=== PATIENT | female | born 1980 | race Caucasian/White ===

== ENCOUNTER 2017-02-22 10:33 | Emergency (ER) | payer MEDICARE, MEDICAID ==
[2017-02-22] MEDS ORDERED: oxyCODONE/Acetamin 5/325 MG* TAB PO ONE (11:42)
[2017-02-22 12:18] VITALS: BP 94/60
--- NOTE | 2017-02-22 18:45 | ED ---
I, Oh,Sogris, scribed for Ted Barnes MD on 02/22/17 at 1134 . Complex/Multi-Sys Presentation - HPI Summary HPI Summary: This 36 y/o female presents to ED for fever, MAYER, fatigue, and "feeling sleepy" since 4-5 days ago. Temperature of 102 F reported at time of onset. Temperature of 97 F is noted at time of triage. Pt reports bee sting by "four different bees " 10 days ago. Pt reports that she is still feeling itchy, and expresses concern that she may be having allergic reaction even after 10 days. She denies any known tick bite. Positive stiff neck. Negative photophobia, n/v, or PMHx includes laminectomy, and unspecified "nerve problem". Primary care involves Dr. Denney. Plan of care involving empirical treatment for Lyme disease and Lyme titer is discussed with pt. - History Of Current Complaint Chief Complaint: EDGeneral Time Seen by Provider: 02/22/17 11:20 Hx Obtained From: Patient, Medical Records Onset/Duration: Still Present Timing: Constant Associated Signs And Symptoms: Positive: Fever. Negative: Chest Pain - Allergies/Home Medications Allergies/Adverse Reactions: Allergies Allergy/AdvReac Type Severity Reaction Status Date / Time NSAIDs Allergy GI Upset Verified 02/21/16 14:49 BLUEBERRIES Allergy ITCHY Uncoded 02/21/16 14:49 THROAT, SOB GRAPES Allergy ITCHY Uncoded 02/21/16 14:49 THROAT, SOB PMH/Surg Hx/FS Hx/Imm Hx Endocrine/Hematology History: Denies: Hx Diabetes Cardiovascular History: Denies: Hx Hypertension, Hx Pacemaker/ICD History: Denies: Hx Renal Disease Sensory History: Denies: Hx Hearing Aid Psychiatric History: Denies: Hx Panic Disorder - Cancer History Cancer Type, Location and Year: 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 [facility] [facility] - Xs 2 - MMT REPAIR. MELONOMA REMOVED - [facility]. GASTRIC BYPASS - 2012 Infectious Disease History: No Infectious Disease History: Denies: Traveled Outside the [place] in Last 30 Days - Family History Known Family History: Negative: Cardiac Disease - Social History Alcohol Use: None Hx Substance Use: No Substance Use Type: Reports: None Smoking Status (MU): Unknown if Ever Smoked Review of Systems Positive: Fever, Fatigue, Other - "feeling sleepy" Negative: Photophobia Negative: Sore Throat, Nasal Discharge Negative: Vomiting, Nausea Positive: Other - stiff neck Positive: Rash - at left upper arm, bee sting site Positive: Headache All Other Systems Reviewed And Are Negative: Yes Physical Exam - Summary Physical Exam Summary: The patient is well-nourished in no acute distress and in no acute pain. The skin is warm and dry and skin color reflects adequate perfusion. Small [place] erythema noted at LUE upper arm, anterior. 3 cm x8 cm. No clearing center. No blanching. No evidence of wasp bite. HEENT: The head is normocephalic and atraumatic. The pupils are equal and reactive. The conjunctivae are clear and without drainage. Nares are patent and without drainage. Mouth reveals moist mucous membranes and the throat is without erythema and exudate. The external ears are intact. The ear canals are patent and without drainage. The tympanic membranes are intact. Neck is supple with full range of motion and tenderness at left sided neck pain. Pain with flexion and extension. No nuchal rigidity. There are no carotid bruits. There is no neck vein distension. Respiratory: Chest is non-tender. Lungs are clear to auscultation and breath sounds are symmetrical and equal. Cardiovascular: Hear is regular rate and rhythm. There is no murmur or rub auscultated. There is no peripheral edema and pulses are symmetrical and equal. Abdomen: The abdomen is soft and non-tender. There are normal bowel sounds heard in all four quadrants and there is no organomegaly palpated. Musculoskeletal: There is no back pain noted. Extremities are non-tender with full range of motion. There is good capillary refill. There is no peripheral edema or calf tenderness elicited. Neurological: Patient is alert and oriented to person, place and time. The patient has symmetrical motor strength in all four extremities. Cranial nerves are grossly intact. Deep tendon reflexes are symmetrical and equal in all four extremities. Psychiatric: The patient has an appropriate affect and does not exhibit any anxiety or depression. Triage Information Reviewed: Yes Vital Signs On Initial Exam: Initial Vitals Temp Pulse Resp BP Pulse Ox 97 F 92 17 116/75 100 02/22/17 10:38 02/22/17 10:38 02/22/17 10:38 02/22/17 10:38 02/22/17 10:38 Vital Signs Reviewed: Yes - [place] Coma Scale Coma Scale Total: 15 Diagnostics - Vital Signs Vital Signs Temp Pulse Resp BP Pulse Ox 02/22/17 10:38 97 F 92 17 116/75 100 - Laboratory Lab Statement: Any lab studies that have been ordered have been reviewed, and results considered in the medical decision making process. Complex Multi-Symp Course/Dx Assessment/Plan: This 36 y/o female presents to ED for fever, fatigue, neck stiffness, "more sleepy" since 4-5 days ago. Pt denies any known tick bite, but states that "I found one crawling on my arm". Pt also states that she may be having allergic reaction to a bee sting that occurred 10 days ago. Upon examination pt is noted with NO real nuchal rigidity, although pt reports pain with extension and flexion of neck. Left sided neck tenderness. Small 3 cm x 8 cm erythematous region is noted at anterior surface of left proximal humerous. Pt is empirically treated with doxycycline for Lyme disease and Lyme titer is done. Pt is discharged. - Diagnoses Provider Diagnoses: Lyme disease, Erythema migrans (Lyme disease) Discharge - Discharge Plan Condition: Stable Disposition: HOME Prescriptions: DOXYcycline CAP(*) [DOXYcycline 100MG CAP(*)] 100 mg PO BID #28 cap oxyCODONE/Acetamin 5/325 MG* [Percocet 5/325 TAB*] 1 tab PO Q6H PRN #20 tab MDD 4 PRN Reason: pain Patient Education Materials: Doxycycline (By mouth), Oxycodone/Acetaminophen ( By mouth), Lyme Disease (ED) Referrals: Non Staff,Doctor [Primary Care Provider] - 2 Days Additional Instructions: Please be sure to follow up with your primary care provider, Dr. Denney. The documentation as recorded by the Barry ortiz Soohyun accurately reflects the service I personally performed and the decisions made by me, Ted Barnes MD.
== END 2017-02-22 12:18 | disposition home or self-care (01) ==
LOC: ED 10:33
DX: A69.20 Lyme disease, unspecified (principal); A26.0 Cutaneous erysipeloid
CPT/HCPCS: 86617; 86618; 99282; A9270-GY